=== PATIENT | male | born 1990 | race Caucasian/White ===

== ENCOUNTER 2020-03-07 08:10 | Emergency (ER) | payer BC, OTHER ==
[2020-03-07 08:22] VITALS: BP 172/97; PULSE 85
--- NOTE | 2020-03-07 08:45 | EDM.PDOC ---
ED HPI GENERAL MEDICAL PROBLEM - General Chief Complaint: Chest Pain Stated Complaint: CHEST PAIN Time Seen by Provider: 03/07/20 08:18 Source of Information: Reports: Patient History Limitations: Reports: No Limitations - History of Present Illness INITIAL COMMENTS - FREE TEXT/NARRATIVE: 29-year-old male presents to the emergency department with complaints of chest pain. Right stabbing chest pain that developed about 5 days ago. Patient states he had been ice fishing earlier that day but does not recall straining himself or lifting anything heavy. States that initially he felt that it was sore muscles but it has not gone away. States the pain is stabbing and continuous. Also states it is worse with taking a deep breath. Patient has not attempted to take any pain relievers to see if they did help. Denies cough, fever, chills, shortness of breath, dizziness, blurred vision, nausea, vomiting or diarrhea. Patient does have a history of hypertension for which he takes lisinopril and hydrochlorothiazide. States he has been taking these for several years. Denies smoking cigarettes or vaping but does admit to smoking marijuana once or twice daily. No other significant medical history noted. Onset: Gradual Quality: Reports: Stabbing Severity: Moderate Improves with: Reports: None Worsens with: Reports: Breathing Associated Symptoms: Reports: No Other Symptoms Right Chest Pain Score (Numeric/FACES): 8 - Related Data Allergies Allergy/AdvReac Type Severity Reaction Status Date / Time No Known Allergies Allergy Verified 03/07/20 08:22 Home Meds: Home Meds Lisinopril 1 tab PO 09/14/13 [History] hydroCHLOROthiazide [Hydrochlorothiazide] 25 mg PO 09/14/13 [History] Citalopram Hydrobromide [Celexa] 0 mg PO DAILY 03/07/20 [History] Past Medical History Cardiovascular History: Reports: Hypertension Psychiatric History: Reports: Anxiety, Depression - Past Surgical History HEENT Surgical History: Reports: Naso-Sinus Surgery Musculoskeletal Surgical History: Reports: Other (See Below) Other Musculoskeletal Surgeries/Procedures:: left knee surgeries (3). 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 Social & Family History - Tobacco Use Tobacco Use Status *Q: Never Tobacco User - Caffeine Use Caffeine Use: Reports: Coffee - Recreational Drug Use Recreational Drug Use: Yes Drug Use in Last 12 Months: Yes Recreational Drug Type: Reports: Marijuana/Hashish Recreational Drug Use Frequency: Daily ED ROS GENERAL - Review of Systems Review Of Systems: See Below Constitutional: Reports: No Symptoms HEENT: Reports: No Symptoms Respiratory: Reports: Pleuritic Chest Pain (On the right) Cardiovascular: Reports: Chest Pain (Right stabbing, nonradiating). Denies: Edema, Lightheadedness, Orthopnea, Palpitations, Syncope Endocrine: Reports: No Symptoms GI/Abdominal: Reports: No Symptoms Musculoskeletal: Reports: No Symptoms Skin: Reports: No Symptoms Neurological: Reports: No Symptoms Psychiatric: Reports: No Symptoms Hematologic/Lymphatic: Reports: No Symptoms Immunologic: Reports: No Symptoms ED EXAM, GENERAL - Physical Exam Exam: See Below Exam Limited By: No Limitations General Appearance: Alert, WD/WN, No Apparent Distress Eye Exam: Bilateral Eye: PERRL Ears: Normal External Exam, Hearing Grossly Normal Nose: Normal Inspection Throat/Mouth: Normal Inspection, Normal Lips, Normal Voice, No Airway Compromise Head: Atraumatic, Normocephalic Neck: Normal Inspection, Supple, Non-Tender, Full Range of Motion Respiratory/Chest: No Respiratory Distress, Lungs Clear, Normal Breath Sounds, No Accessory Muscle Use, Chest Non-Tender Cardiovascular: Normal Peripheral Pulses, Regular Rate, Rhythm, No Edema, No Murmur Peripheral Pulses: 2+: Radial (L), Radial (R), Dorsalis Pedis (L), Dorsalis Pedis (R) GI/Abdominal: Normal Bowel Sounds, Soft, Non-Tender (Male) Exam: Deferred Rectal (Males) Exam: Deferred Back Exam: Normal Inspection, Full Range of Motion Extremities: Normal Inspection, Normal Range of Motion, No Pedal Edema, Normal Capillary Refill Neurological: Alert, Oriented, Normal Cognition Psychiatric: Normal Affect, Normal Mood Skin Exam: Warm, Dry, Intact, Normal Color, No Rash Lymphatic: No Adenopathy #1 Interpretation EKG Date: 03/07/20 Time: 08:21 Rhythm: NSR Rate (Beats/Min): 73 [place]: Normal P-Wave: Present QRS: Normal EKG Interpretation Comments: As per interpretation by Dr. Quijano: Sinus rhythm at 73, early R wave transition consider right ventricular hypertrophy versus septal hypertrophy pattern, diffuse early repolarization pattern, no signs of ischemia. Course - Vital Signs Last Recorded V/S: Last Vital Signs Temp 97.9 F 03/07/20 08:19 Pulse 85 03/07/20 08:19 Resp 18 03/07/20 08:19 BP 172/97 H 03/07/20 08:19 Pulse Ox 99 03/07/20 08:19 - Orders/Labs/Meds Orders: Active Orders 24 hr Category Date Time Status EKG 12 Lead [EKG Documentation Completion] [RC] STAT Care 03/07/20 09:07 Active Labs: Laboratory Tests 03/07/20 03/07/20 Range/Units 08:00 08:00 WBC 10.25 H (4.23-9.07) K/mm3 RBC 4.71 (4.63-6.08) M/mm3 Hgb 15.7 (13.7-17.5) gm/dl Hct 48.0 (40.1-51.0) % MCV 101.9 H (79.0-92.2) fl MCH 33.3 H (25.7-32.2) pg MCHC 32.7 (32.2-35.5) g/dl RDW Std Deviation 45.8 H (35.1-43.9) fL Plt Count 283 (163-337) K/mm3 MPV 9.2 L (9.4-12.3) fl Neut % (Auto) 68.9 H (34.0-67.9) % Lymph % (Auto) 22.0 (21.8-53.1) % [place] % (Auto) 7.3 (5.3-12.2) % Eos % (Auto) 1.1 (0.8-7.0) Baso % (Auto) 0.4 (0.1-1.2) % Neut # (Auto) 7.06 H (1.78-5.38) K/mm3 Lymph # (Auto) 2.26 (1.32-3.57) K/mm3 [place] # (Auto) 0.75 (0.30-0.82) K/mm3 Eos # (Auto) 0.11 (0.04-0.54) K/mm3 Baso # (Auto) 0.04 (0.01-0.08) K/mm3 Manual Slide Review Normal smear Sodium 136 (136-145) mEq/L Potassium 3.7 (3.5-5.1) mEq/L Chloride 98 (98-107) mEq/L Carbon Dioxide 28 (21-32) mEq/L Anion Gap 13.7 (5-15) BUN 15 (7-18) mg/dL Creatinine 1.0 (0.7-1.3) mg/dL Est Cr Clr Drug Dosing 96.59 mL/min Estimated GFR (MDRD) > 60 (>60) mL/min BUN/Creatinine Ratio 15.0 (14-18) Glucose 111 H (74-106) mg/dL Calcium 10.4 H (8.5-10.1) mg/dL Magnesium 2.1 (1.8-2.4) mg/dl Total Bilirubin 1.2 H (0.2-1.0) mg/dL AST 17 (15-37) U/L ALT 26 (16-63) U/L Alkaline Phosphatase 56 (46-116) U/L Troponin I < 0.017 (0.00-0.056) ng/mL Total Protein 8.7 H (6.4-8.2) g/dl Albumin 4.8 (3.4-5.0) g/dl Globulin 3.9 gm/dL Albumin/Globulin Ratio 1.2 (1-2) - Radiology Interpretation Free Text/Narrative:: Nothing acute is seen on portable chest x-ray. - Re-Assessments/Exams Free Text/Narrative Re-Assessment/Exam: 03/07/20 08:59 I have ordered a CBC CMP, magnesium, troponin, EKG and chest x-ray on this patient. 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 No cardiac evidence associated with patient's chest pain, likely pleuritic. Patient will be discharged to home recommending he take NSAIDs [id number] for the next 48 hours. Follow-up with Dr. Quiros his primary care physician. Departure - Departure Time of Disposition: 09:35 Disposition: Home, Self-Care 01 Condition: Good Clinical Impression: Atypical chest pain Instructions: Nonspecific Chest Pain, Adult, [id number] Referrals: Billy Hawkins MD [Primary Care Provider] - Forms: ED Department Discharge Additional Instructions: You were seen in the emergency department today with complaints of right-sided chest pain that has been ongoing for the past 5 days. Your chest x-ray and EKG were unremarkable. Lab work was also unremarkable. I suspect your chest pain is pleuritic in the standard treatment is nonsteroidal anti-inflammatories. I recommend that you take ibuprofen 600 mg every 8 hours for the next 48 hours or Aleve 2 tabs every 12 hours for the next 48 hours. Please take the medications with food. See Dr. Quiros on Wednesday at your scheduled appointment. Should your condition worsen or change please return to the emergency department or follow-up with your primary care physician. Sepsis Event Note (ED) - Evaluation Sepsis Screening Result: No Definite Risk - Focused Exam Vital Signs: Vital Signs Temp Pulse Resp BP Pulse Ox 03/07/20 08:19 97.9 F 85 18 172/97 H 99 - My Orders Last 24 Hours: My Active Orders 03/07/20 09:07 EKG 12 Lead [EKG Documentation Completion] [RC] STAT - Assessment/Plan Last 24 Hours: My Active Orders 03/07/20 09:07 EKG 12 Lead [EKG Documentation Completion] [RC] STAT
--- NOTE | 2020-03-07 09:13 | CR ---
Chest: Portable view of the chest was obtained. Comparison: No prior chest imaging is available. Heart size and mediastinum are normal. Lungs are clear with no acute parenchymal change. Bony structures are grossly intact. Impression: 1. Nothing acute is seen on portable chest x-ray. Diagnostic code #1
== END 2020-03-07 09:45 | disposition home or self-care (01) ==
LOC: JD.ED 08:10
DX: R07.89 Other chest pain (principal); I10 Essential (primary) hypertension; F41.9 Anxiety disorder, unspecified; F32.9 Major depressive disorder, single episode, unspecified; Z79.899 Other long term (current) drug therapy
CPT/HCPCS: 36415; 71045; 71045-26; 80053; 83735; 84484; 85025; 93005; 93010; 99283; 99285-25